=== PATIENT | male | born 1945 | race Caucasian/White ===

== ENCOUNTER 2022-09-01 11:16 | Emergency (ER) | payer MEDICARE ==
[2022-09-01] MEDS ORDERED: Lidocaine 1% w/Epinephrine 1:100K 20 ML VIAL ONE (11:47)
[2022-09-01] MEDS ORDERED: Bacitracin 1 PK ONE (12:26)
== END 2022-09-01 12:38 | disposition home or self-care (01) ==
LOC: NAV ERS 11:16
DX: S01.81XA Laceration without foreign body of other part of head, initial encounter (principal); I10 Essential (primary) hypertension; E78.00 Pure hypercholesterolemia, unspecified; W26.8XXA Contact with other sharp object(s), not elsewhere classified, initial encounter
CPT/HCPCS: 12013

== ENCOUNTER 2023-08-01 08:52 | Emergency (ER) | payer MEDICARE, SELFPAY | END 2023-08-01 11:25 | disposition home or self-care (01) | LOC: NAV ERS 08:52 | DX: B34.9 Viral infection, unspecified (principal); I10 Essential (primary) hypertension; Z79.899 Other long term (current) drug therapy | CPT/HCPCS: 71046; 87635; 87804 ==